=== PATIENT | male | born 1950 | race Caucasian/White ===

== ENCOUNTER 2024-10-23 07:41 | Day surgery (SDC) | payer MEDICARE, OTHER, SELFPAY ==
[2024-10-23] VITALS (8 sets, daily range): BP systolic 114–149; BP diastolic 51–76; BMI 23.4
[2024-10-23] MEDS: LOW STRENGTH ASPIRIN 324 MG PO (08:32)
[2024-10-23 08:50] LABS: Glucose - Point of Care 138 mg/dl (70-99)
--- NOTE | 2024-10-23 13:17 | ITS.CL.CATH ---
[facility] - Catheterization
Cardiac Catheterization
Procedure Report:
LEFT HEART CATHETERIZATION
Date of Procedure: October 23, 2024
Procedures performed:
1: Coronary angiography
Primary Care Physician: Dr. Samantha Linares
Primary Steel Inspector: Dr. Tam Townsend
INDICATION: The patient is a 74-year-old man with progressive aortic valvular stenosis (echo performed 09/27/2024 shows a mean gradient of 49 with a valve area by the continuity equation of 0.5 cm�) who has new exertional fatigue who is referred for
coronary angiography in preparation for aortic valve intervention. The patient also has a left bundle branch block noted on his most recent EKG in October. This is new.
ACCESS: The patient was prepped and draped in usual sterile fashion. A 5 Montserratian sheath was placed in the right radial artery using the Seldinger over the wire technique.
HEMODYNAMIC FINDINGS (mmHg):
LV(s/d,EDP): Valve not crossed.
Ao(s/d,m): 131/71, 97
ANGIOGRAPHIC FINDINGS:
Single-plane Left Ventriculography in MILLER Projection: Not done
Coronary Angiography:
Dominance: Right
Left Main: Large-caliber, normal.
Left Anterior Descending: The left anterior descending artery is a medium caliber vessel that gives rise to 2 medium caliber diagonal branches. These vessels are widely patent with no focal disease.
Left Circumflex: The left circumflex is a relatively small caliber system that gives rise to a medium caliber high first obtuse marginal branch which courses in a ramus distribution and a small to medium caliber second obtuse marginal branch that
has mild luminal irregularities. All vessels have normal flow.
Right Coronary: The right coronary artery is a very large caliber dominant vessel that gives rise to a huge posterior descending artery and large bifurcating posterior left ventricular branch. These proximal RCA has very mild luminal
irregularities. The distal vessels are widely patent and appear angiographically normal with normal flow.
Fluoroscopy Time (min): 6.1
Radiation Dose (mGy): 241
DAP (Gy.cm2): 18
Closure device: None. A TR band was applied for hemostasis at the right wrist.
Complications: None.
ASSESSMENT:
1: Near normal coronary arteries
CONCLUSIONS and RECOMMENDATIONS:
1: Proceed with TAVR/SAVR evaluation.
Jarvis Mason M.D.
Copy to: Dr. Samantha Linares
--- NOTE | 2024-10-23 14:17 | CONSULT.STRU ---
Consultation
-
Date/Time Consultation Requested: 10/23/2024
Date/Time Consultation Performed: 10/23/2024
Requesting Provider: Dr. Peter Mason
Performing Provider: NAVJOT Roberts
Reason for Consultation: Aortic stenosis/ TAVR evaluation
Patient History
Physicians
Family Physician: Liv Pringle
Outpatient Mc Kay Machine Operator: Tam Townsend
Primary Mc Kay Machine Operator: Tam Townsend
History of Present Illness
Mr. Cotton is a very pleasant and well appearing 74yo male who is followed by Dr. Townsend. He underwent cardiac cath today with Dr. Mason as part of his evaluation process in planning for aortic valve replacement. He has no CAD on cath. His
echocardiogram was notable for AV P/M.3/49.2, PAM 0.448, AV velocity 4.64m/s, EF is 55-60%, trace to mild AI and MR. He is feeling he gets slightly more easily fatigued as well as with significant exertion her feels heaviness in his chest and
his heart racing. These symptoms quickly resole with rest. Denies PND, orthopnea, palpitations or chest pain other than what was just mentioned. Overall he stays relatively active.
Reviewed the pathophysiology of aortic stenosis with the patient and his . Explained the treatment options of SAVR and TAVR. Explained the TAVR evaluation process including follow up BMP, CT TAVR scan, CT surgery consult and Heart Team
discussion. Provided with script for BMP next week, script and appointment for CT TAVR, Consult appointment with Dr. Carrasco and a copy of the TAVR education booklet with contact information. Allowed for and answered questions.
Past Medical History
Past Medical History: Arrhythmias (occasional PACs), Atrial Fib, BPH, GERD, Hypercholesterolemia, NIDDM and Valvular Disease (Severe , Mild AI, trace MR)
Past Surgical History
Past Surgical History: Other (cornea transplant, inguinal hernia repair)
Dental History
Regular Dental Care: [facility]
Family History
Mother: at Age (65yo, CVA, CAD)
Father: at Age (65yo, Cancer)
Social History
Alcohol: Occasional
Drug: None
Tobacco: Non-Smoker
Personal:
Living: With Spouse
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
Allergies
Allergy/AdvReac Type Severity Reaction Status Date / Time
bacitracin Allergy Intermediate Rash Verified 10/23/24 08:13
[From Neosporin
([id number])]
neomycin Allergy Intermediate Rash Verified 10/23/24 08:13
[From Neosporin
([id number])]
polymyxin B Allergy Intermediate Rash Verified 10/23/24 08:13
[From Neosporin
([id number])]
Home Medications
�Medication �Instructions �Recorded �Confirmed �Type
B12 420 mg PO DAILY 10/23/24 10/23/24 History
Zan 750 mg PO DAILY 10/23/24 10/23/24 History
Ginko 3,000 mg PO DAILY 10/23/24 10/23/24 History
Ginzing 1,000 mg PO DAILY 10/23/24 10/23/24 History
K2-7 400 mg PO DAILY 10/23/24 10/23/24 History
L.acid,brev,bulg,casei,parac,plan,saliv-B.anim 1 cap PO DAILY 10/23/24 10/23/24 History
20 billion cell capsule
(Probiotic-10)
Alburgh Extract 5,000 mg PO DAILY 10/23/24 10/23/24 History
Reservatrol 500 mg PO QPM 10/23/24 10/23/24 History
acetylcysteine 600 mg capsule (NAC) 600 mg PO DAILY 10/23/24 10/23/24 History
alfuzosin 10 mg tablet,extended 10 mg PO DAILY 10/23/24 10/23/24 History
release 24 hr
apixaban 5 mg tablet (Eliquis) 5 mg PO BID 10/23/24 10/23/24 History
apple cider vinegar 500 mg tablet 450 mg PO DAILY 10/23/24 10/23/24 History
arginine 1,000 mg-B12 16.6 1 tab PO DAILY 10/23/24 10/23/24 History
mcg-folic acid 66.6 mcg-B6 3.3 mg
tablet (L-Arginine Men's MIOX)
ashwagandha extract 500 mg capsule 600 mg PO DAILY 10/23/24 10/23/24 History
bitter melon extract 750 mg tablet 1,000 mg PO DAILY 10/23/24 10/23/24 History
cholecalciferol (vitamin D3) 125 125 mcg PO DAILY 10/23/24 10/23/24 History
mcg (5,000 unit) tablet (Vitamin
D3)
cinnamon bark 500 mg capsule 600 mg PO DAILY 10/23/24 10/23/24 History
(Cinnamon)
coQ10 (ubiquinol) 200 mg capsule 200 mg PO DAILY 10/23/24 10/23/24 History
dihydroberberine 200 mg capsule 400 mg PO BID 10/23/24 10/23/24 History
(Berberine ES-5)
finasteride 5 mg tablet 5 mg PO DAILY 10/23/24 10/23/24 History
glipizide 5 mg tablet 5 mg PO BID 10/23/24 10/23/24 History
lutein 20 mg tablet 20 mg PO DAILY 10/23/24 10/23/24 History
magnesium gluconate 500 mg tablet 500 mg PO DAILY 10/23/24 10/23/24 History
metformin 1,000 mg tablet 1,000 mg PO BIDWMEAL 10/23/24 10/23/24 History
multivit with minerals-iron 18 1 tab PO DAILY 10/23/24 10/23/24 History
mg-folic ac 400 mcg-vit K 25 mcg
tablet (Adults Multivitamin)
omega-3 fatty acids 1,250 mg PO BID 10/23/24 10/23/24 History
pomegran fruit xt-pomegra seed 250 1 cap PO DAILY 10/23/24 10/23/24 History
mg capsule
quercetin 500 mg capsule 400 mg PO DAILY 10/23/24 10/23/24 History
porfirio oil 1 ea miscellaneous DAILY 10/23/24 10/23/24 History
rosuvastatin 5 mg tablet 5 mg PO .3X/WEEK 10/23/24 10/23/24 History
saw palmetto 450 mg capsule 450 mg PO BID 10/23/24 10/23/24 History
selenium 200 mcg tablet 200 mcg PO DAILY 10/23/24 10/23/24 History
sitagliptin phosphate 100 mg 100 mg PO DAILY 10/23/24 10/23/24 History
tablet (Januvia)
soybean, fermented 50 mg capsule 50 mg PO DAILY 10/23/24 10/23/24 History
(Nattokinase)
turmeric root extract 300 mg 600 mg PO BID 10/23/24 10/23/24 History
capsule
zinc 50 mg tablet 50 mg PO DAILY 10/23/24 10/23/24 History
STS%
STS %: 0.951%
Physical Exam
Vital Signs
Temp 98.1 F 10/23/24 08:37
Pulse 59 10/23/24 12:00
Resp Rate 16 10/23/24 12:00
Blood pressure 130/51 10/23/24 11:59
Blood pressure extremity used: Left upper arm 10/23/24 08:37
MAP (cuff-Eric Monitor) 73 10/23/24 11:59
SaO2 99 10/23/24 12:00
Can the patient verbally communicate their pain? Yes 10/23/24 12:28
Actual Weight 73.936 kg 10/23/24 07:59
Body Mass Index (BMI) 23.4 10/23/24 07:59
Labs
10/14/2024:
BUN/Creat: 13/1.12
GFR: 68
WBC: 7.0
Hgb: 13.2
HCT: 38.8
WBC: 248675
Diagnostic Studies
10/23/2024 Cardiac Cath:
HEMODYNAMIC FINDINGS (mmHg):
LV(s/d,EDP): Valve not crossed.
Ao(s/d,m): 131/71, 97
ANGIOGRAPHIC FINDINGS:
Single-plane Left Ventriculography in MILLER Projection: Not done
Coronary Angiography:
Dominance: Right
Left Main: Large-caliber, normal.
Left Anterior Descending: The left anterior descending artery is a medium caliber vessel that gives rise to 2 medium caliber diagonal branches. These vessels are widely patent with no focal disease.
Left Circumflex: The left circumflex is a relatively small caliber system that gives rise to a medium caliber high first obtuse marginal branch which courses in a ramus distribution and a small to medium caliber second obtuse marginal branch that
has mild luminal irregularities. All vessels have normal flow.
Right Coronary: The right coronary artery is a very large caliber dominant vessel that gives rise to a huge posterior descending artery and large bifurcating posterior left ventricular branch. These proximal RCA has very mild luminal
irregularities. The distal vessels are widely patent and appear angiographically normal with normal flow.
Fluoroscopy Time (min): 6.1
Radiation Dose (mGy): 241
DAP (Gy.cm2): 18
Closure device: None. A TR band was applied for hemostasis at the right wrist.
Complications: None.
ASSESSMENT:
1: Near normal coronary arteries
CONCLUSIONS and RECOMMENDATIONS:
1: Proceed with TAVR/SAVR evaluation.
09/27/2024 Echocardiogram:
SUMMARY
1. Left ventricular ejection fraction, by visual estimation, is 55 to 60%.
2. Moderate concentric left ventricular hypertrophy.
3. Normal LV diastolic function.
4. The left atrium is normal in by volume index 26.0 mL/m2.
5. Normal right ventricular size and systolic function.
6. Normal right atrium by area 16.8 cm2.
7. Anatomically Trileaflet Functionally Bicuspid Aortic Valve with RCC and LCC Calcific Fusion.
8. Severe aortic valve stenosis. Trace to mild aortic regurgitation.
9. AoV velocity of 4.64 m/s; Peak aortic valve gradient = 86.3 mmHg; Mean gradient = 49.2 mmHg; AoV Area by continuity equation = 0.48 cm2; AoV Dimensionless Index = 0.15.
10. There is mild thickening of the anterior and posterior leaflets of the mitral valve. Mild mitral annular calcification.
11. Trace to Mild mitral valve regurgitation is seen.
12. Right atrial pressure of (3 mmHg), the estimated right ventricular systolic pressure is normal at (27.6 mmHg).
13. The aortic root measures (3.80 cm/ BSA indexed 2.0 cm/m2), and Asc Aorta (4.40 cm/ BSA indexed 2.3 cm/m2).
14. Study done in Normal sinus rhythm.
15. Compared to prior study 01/2024, Aortic Gradients have increased (previously peak/mean 66/42mm Hg).

PHYSICIAN INTERPRETATION
Left Ventricle:
The left ventricular internal cavity size was normal. There is moderate concentric left ventricular hypertrophy. Normal LV diastolic function was demonstrated. Left ventricular ejection fraction, by visual estimation, is 55 to 60%.
LV Wall Scoring:
All segments are normal.
Right Ventricle:
Normal right ventricular size, wall thickness, and systolic function. The tricuspid regurgitant velocity predicts an estimated right ventricular systolic pressure of 27.6 mmHg.
Left Atrium:
The left atrium is normal by volume index 26.0 mL/m2.
Right Atrium:
Right atrium is normal by area 16.8 cm2.
Inferior vena cava normal in size (<2.1 cm) + greater than 50% variably consistent with normal right atrial pressures (3 mmHg).
Interatrial Septum:
Interatrial and interventricular septa appear intact, with no obvious evidence of intracardiac shunting by spectral or color Doppler.
Aortic Valve:
Doppler findings and restricted movement of the aortic valve cusps are consistent with severe aortic stenosis. The peak aortic valve gradient is 86.3 mmHg. The mean aortic valve gradient is 49.2 mmHg. There is trace to mild aortic regurgitation.
Anatomically Trileaflet Functionally Bicuspid Aortic Valve with RCC and LCC Calcific Fusion.
Mitral Valve:
There is mild mitral annular calcification. There is mild thickening of the anterior and posterior leaflets of the mitral valve. The calculated mitral valve area is 2.69 cm�, using a pressure half-time of 82 msec. Mild mitral valve regurgitation
is seen.
Tricuspid Valve:
There is trace to mild tricuspid valve regurgitation. The tricuspid regurgitant velocity is (2.48 m/s), and with an assumed right atrial pressure of (3 mmHg), the right ventricular systolic pressure is normal (27.6 mmHg).
Pulmonary Valve:
There is trace pulmonary valve regurgitation.
Aorta:
The aortic root measures (3.80 cm/ BSA indexed 2.0 cm/m2), and Asc Aorta (4.40 cm/ BSA indexed 2.3 cm/m2).
Pericardium:
There is no evidence of pericardial effusion.
Sinus Rhythm: Normal sinus rhythm.
Comparison To Previous Study:
Compared to prior study 01/2024, Aortic Gradients have increased (previously peak/mean 66/42mm Hg).

QUANTITATIVE DATA
Left Ventricle: LV M-mode:
IVSd (2D): 1.6 cm
LVPWd (2D): 1.5 cm LV Diastology:
LVIDd (2D): 4.4 cm MV E Vmax: 0.75 m/s
LVIDs (2D): 2.4 cm MV A Vmax: 1.06 m/s
LV FS%: 46 % MV E/A: 0.70
e' lateral: 0.07 m/s
Right Ventricle: e' medial: 0.06 m/s
RV d, 2D: 2.1 cm E/e' lateral: 10.68
E/e' medial: 13.13
Left Atrium:
LA Area s, MOD A4C: 16.7 cm2 Aorta:
LA Area s, MOD A4C i bsa: 8.8cm2/m2 Ao Root s, 2D: 3.8 cm
LA Area s, MOD A2C: 15.8 cm2
LA Vol s, MOD A4C: 44.1 ml Aortic Valve:
LA Vol s, MOD A4C i bsa: 23.2 ml/m2 AV Vmax: 4.6 m/s
LA Vol s, MOD A2C: 40.0 ml AV Peak Gradient: 86.3 mmHg
LA Vol s, MOD A2C i bsa: 21.01 ml/m2 AV Mean Gradient: 49.2 mmHg
LA Vol s, MOD BP: 42.7 ml AV VTI: 133.2 cm
LA Vol s, MOD BP i bsa: 22.4 ml/m2 AV Area, Vmax: 0.59 cm2
LA Vol s, A/L A2C: 46.7 ml AV Area, VTI: 0.48 cm2
LA Vol s, A/L A2C i bsa: 24.5 ml/m2 AI Half-time: 462 msec
LA Vol s, A/L A4C: 50.5 ml AI Decel Rate: 2.50 m/s2
LA Vol s, A/L A4C i bsa: 26.5 ml/m2
LA Vol s, A/L BP: 49.4 ml Mitral Valve:
LA Vol s, A/L BP i bsa: 26.0 ml/m2 MV E Vmax: 0.7 m/s
MV A Vmax: 1.1 m/s
Right Atrial: MV E/A: 0.7
RA Vol s, A/L A4C: 49.6 ml MV Decel Time: 282 msec
RA Vol s A/L A4C i bsa: 26.1ml/m2 MV P 1/2 Time: 82 msec
RA Vol s, MOD A4C: 41.6 ml MV Area: 2.69 cm2
RA Vol s, MOD A4C i bsa: 21.9ml/m2
Tricuspid Valve:
TR Vmax: 2.5 m/s
TR Pk Gradient: 24.6 mmHg
RA Pressure: 3 mmHg
RVSP: 27.6 mmHg
Exam
General: Well Developed, Well Nourished, No Apparent Distress and Comfortable
HEENT: Normocephalic, PERRLA and EOMI
Neck: Trachea Midline
Respiratory: Clear; Negative Wheezes, Crackles or Rhonchi
Cardiac: S1/S2, Regular Rhythm and Murmur (Grade III/ systolic murmur)
GI: Soft, Non Tender, Non Distended and Normal Bowel Sounds
Rectal: Deferred by Provider
Skin: Warm and Dry
Neuro: AO x 3, No Motor Deficits and Nonfocal/Grossly Intact
Extremities: Pulses (+2 dp/pt pulses); Negative Lower Level Edema
Lymph: No Lymphadenopathy
Psych: Calm
Assessment / Plan
-
Procedure Type:�Isolated AVR
Perioperative Outcome Estimate %
Operative Mortality 0.951%
Morbidity & Mortality 5.88%
Stroke 0.874%
Renal Failure 1.14%
Reoperation 3.11%
Prolonged Ventilation 2.31%
Deep Sternal Wound Infection 0.029%
Long Hospital Stay (>14 days) 3.78%
Short Hospital Stay (<6 days)* 50.9%
Severe Aortic stenosis:
����������� Continue evaluation for aortic stenosis as outpatient
����������� BMP next week
����������� CT TAVR scan 11/08/2024 at
����������� CT surgery consult with Dr. Carrasco 11/02/2024
����������� Dental clearance
����������� Heart team discussion at [facility]
Data Reviewed
-
EKG: Report Reviewed by me
Pediatric Occupational Therapist: Report Reviewed by me and Discussed with Physician
Echo: Report Reviewed by me and Discussed with Physician
Labs: Labs Reviewed by me
Old Records: Reviewed (cardiology notes)
Total Time Spent with Patient (in minutes): 45
== END 2024-10-23 12:30 | disposition home or self-care (01) ==
LOC: CATH 07:41
PROVIDERS: ATTENDING PHYSICIAN Internal Medicine Interventional Cardiology; FAMILY PHYSICIAN Family Medicine; OTHER PHYSICIAN Internal Medicine Cardiovascular Disease
DX: I35.0 Nonrheumatic aortic (valve) stenosis (principal); I48.91 Unspecified atrial fibrillation; I44.7 Left bundle-branch block, unspecified; E78.00 Pure hypercholesterolemia, unspecified; E11.9 Type 2 diabetes mellitus without complications; K21.9 Gastro-esophageal reflux disease without esophagitis; N40.0 Benign prostatic hyperplasia without lower urinary tract symptoms; Z82.49 Family history of ischemic heart disease and other diseases of the circulatory system; Z79.01 Long term (current) use of anticoagulants; Z79.84 Long term (current) use of oral hypoglycemic drugs
CPT/HCPCS: C1769; C1894; 82962; 93454; Q9967

== ENCOUNTER → 2024-11-08 08:53 | Outpatient (REF) | payer MEDICARE, OTHER, SELFPAY | LOC: RAD 08:53 | PROVIDERS: ATTENDING PHYSICIAN Nurse Practitioner Adult Health | DX: I35.0 Nonrheumatic aortic (valve) stenosis (principal) | CPT/HCPCS: 74174; 75572; Q9967 ==